=== PATIENT | male | born 1980 | race Caucasian/White ===

== ENCOUNTER 2017-02-17 08:30 | Emergency (ER) | payer MEDICAID ==
[~2017-02-17] VITALS: Ht 157.5 cm; Wt 68.0 kg
[2017-02-17] MEDS ORDERED: IPRATROPIUM/ALBUTEROL 0.5-3(2.5)MG/3ML NEB HHN ONE (10:30)
[2017-02-17 12:43] VITALS: BP 101/64
== END 2017-02-17 12:49 | disposition home or self-care (01) ==
LOC: ER 09:22
DX: J45.909 Unspecified asthma, uncomplicated (principal); F41.9 Anxiety disorder, unspecified
CPT/HCPCS: 93005; 94640; 99283; J7620; Z7610

== ENCOUNTER 2017-03-25 12:48 | Emergency (ER) | payer MEDICAID ==
[~2017-03-25] VITALS: Ht 160 cm; Wt 63.0 kg
[2017-03-25] MEDS ORDERED: ALBUTEROL (13:21)
[2017-03-25] MEDS ORDERED: FAMOTIDINE 20MG/2ML VIAL IV ONE (16:30)
[2017-03-25] MEDS ORDERED: MAGNESIUM/ALUMINUM HYDROXIDE/SIMETHICONE 30ML UDC PO ONE (16:30)
[2017-03-25] MEDS ORDERED: LORAZEPAM 2MG/ML CPJ IV ONE (16:30)
[2017-03-25 19:14] LABS: CLARITY URINE CLEAR (CLEAR); COLOR URINE YELLOW (YELLOW); KETONES URINE 4+ (NEGATIVE); LEUKOCYTE ESTERASE URINE NEGATIVE (NEGATIVE); NITRITE URINE NEGATIVE (NEGATIVE); OCCULT BLOOD URINE NEGATIVE (NEGATIVE); PROTEIN URINE NEGATIVE (NEGATIVE); SPECIFIC GRAVITY URINE 1.024 (1.005-1.030); UROBILINOGEN URINE 0.2 E.U./dL (0.2-1.0)
[2017-03-25] MEDS ORDERED: SODIUM CHLORIDE 0.9% 1,000 ML IV ONE (19:15)
[2017-03-25 19:24] LABS: *AMPHETAMINES SCREEN URINE PRESUMTIVE POSITIVE (NEGATIVE); *BARBITURATES SCREEN URINE NEGATIVE (NEGATIVE); *BENZODIAZEPINES SCREEN URINE NEGATIVE (NEGATIVE); *COCAINE SCREEN URINE NEGATIVE (NEGATIVE); CANNABINOID URINE SCREEN NEGATIVE (NEGATIVE); METHADONE URINE SCREEN NEGATIVE (NEGATIVE); OPIATES URINE SCREEN NEGATIVE (NEGATIVE); PHENCYCLIDINE URINE SCREEN NEGATIVE (NEGATIVE)
[2017-03-25 20:20] VITALS: BP 107/68
== END 2017-03-25 20:48 | disposition home or self-care (01) ==
LOC: ER 12:48
DX: F41.9 Anxiety disorder, unspecified (principal); F15.10 Other stimulant abuse, uncomplicated; F12.10 Cannabis abuse, uncomplicated; J45.909 Unspecified asthma, uncomplicated; F17.200 Nicotine dependence, unspecified, uncomplicated; Z90.49 Acquired absence of other specified parts of digestive tract
CPT/HCPCS: 80305; 81003; 93005; 96361; 96374; 96375; 99285; J2060; J3490; J7030; Z7610

== ENCOUNTER 2024-02-22 09:17 | Emergency (ER) | payer MEDICAID ==
[~2024-02-22] VITALS: Ht 162.6 cm; Wt 64.0 kg
[~2024-02-22 09:17] MED LIST: ALBUTEROL
[2024-02-22 09:21] VITALS: O2SAT 97
[2024-02-22 09:23] VITALS: BP 125/82; TEMP 97.8
[2024-02-22] MEDS: PREDNISONE 20MG TABLET PO STA (09:42)
[2024-02-22 09:48] VITALS: PULSE 97; RESP 20; O2SAT 97
[2024-02-22] MEDS: ALBUTEROL (0.083%) 2.5MG/3ML NEB HHN STA (09:48)
[2024-02-22] MEDS: IPRATROPIUM BROMIDE (0.02%) 0.5MG/2.5ML NEB HHN STA (09:48)
[2024-02-22] MEDS ORDERED: P20 MT (10:33)
[2024-02-22] MEDS ORDERED: ALBU90AE INH (10:33)
== END 2024-02-22 10:41 | disposition home or self-care (01) ==
LOC: ER 09:17
DX: J45.901 Unspecified asthma with (acute) exacerbation (principal); F41.9 Anxiety disorder, unspecified; F12.90 Cannabis use, unspecified, uncomplicated; F17.210 Nicotine dependence, cigarettes, uncomplicated; Z90.49 Acquired absence of other specified parts of digestive tract
CPT/HCPCS: 71045; 94640; 94070; 98960; 99283; 99406; J7512; Z7610 ×3

== ENCOUNTER 2024-05-22 03:42 | Emergency (ER) | payer MEDICAID ==
[~2024-05-22] VITALS: Ht 160 cm; Wt 68.0 kg
[~2024-05-22 03:42] MED LIST changes: +ALBU90AE INH; +P20 MT
[2024-05-22 03:47] VITALS: BP 113/79; TEMP 36.7
[2024-05-22 03:48] VITALS: O2SAT 98
[2024-05-22] MEDS: PREDNISONE 20MG TABLET PO STA (04:24)
[2024-05-22] MEDS: HYDROXYZINE 25MG TABLET PO ONE (04:24)
[2024-05-22] MEDS: ALBUTEROL (0.083%) 2.5MG/3ML NEB HHN STA (04:41)
[2024-05-22] MEDS: IPRATROPIUM BROMIDE (0.02%) 0.5MG/2.5ML NEB HHN STA (04:42)
[2024-05-22 04:46] VITALS: PULSE 93; RESP 20; O2SAT 94
[2024-05-22] MEDS ORDERED: P20 MT (05:16)
[2024-05-22] MEDS ORDERED: HYDR-459 MT (05:16)
[2024-05-22] MEDS ORDERED: ALBU18HF2 IH (05:16)
[2024-05-22] MEDS ORDERED: ALBU2.5V13 NEB (05:25)
== END 2024-05-22 05:52 | disposition home or self-care (01) ==
LOC: ER 03:42
DX: J45.901 Unspecified asthma with (acute) exacerbation (principal); F12.10 Cannabis abuse, uncomplicated; F41.9 Anxiety disorder, unspecified; Z79.899 Other long term (current) drug therapy; Z90.49 Acquired absence of other specified parts of digestive tract
CPT/HCPCS: 71045; 94644; 99285; J7512; Z7610; 94640

== ENCOUNTER 2024-06-22 06:05 | Emergency (ER) | payer MEDICAID ==
[~2024-06-22] VITALS: Ht 157.5 cm; Wt 66.2 kg
[~2024-06-22 06:05] MED LIST changes: +ALBU18HF2 IH; +ALBU2.5V13 NEB; +HYDR-459 MT
[2024-06-22 06:13] VITALS: TEMP 36.9
[2024-06-22] MEDS ORDERED: P20 MT (06:50)
[2024-06-22] MEDS ORDERED: ALBU4TAB6 MT (06:50)
[2024-06-22] MEDS ORDERED: KETOROLAC 30MG/ML VIAL IM ONE (07:00)
[2024-06-22 08:22] VITALS: PULSE 80; RESP 15; O2SAT 97
[2024-06-22] MEDS: IPRATROPIUM/ALBUTEROL 0.5-3(2.5)MG/3ML NEB HHN ONE (08:22)
[2024-06-22 08:52] VITALS: BP 111/77; PULSE 86; RESP 16; O2SAT 100
== END 2024-06-22 08:51 | disposition home or self-care (01) ==
LOC: ER 06:17
DX: J45.901 Unspecified asthma with (acute) exacerbation (principal); F41.9 Anxiety disorder, unspecified; F12.90 Cannabis use, unspecified, uncomplicated; Z90.49 Acquired absence of other specified parts of digestive tract
CPT/HCPCS: 71045; 94640; 99283; Z7610 ×3; 94070; 94664

== ENCOUNTER 2024-08-19 00:42 | Emergency (ER) | payer MEDICAID ==
[~2024-08-19] VITALS: Ht 157.5 cm; Wt 61.0 kg
[~2024-08-19 00:42] MED LIST changes: +ALBU4TAB6 MT
[2024-08-19] MEDS: ALBUTEROL (0.5%) 2.5MG/0.5ML NEB HHN ONE (01:41)
[2024-08-19 01:42] VITALS: PULSE 86; RESP 20; O2SAT 96
[2024-08-19] MEDS: PREDNISONE 20MG TABLET PO ONE (01:42)
[2024-08-19] MEDS: ACETAMINOPHEN 325MG TABLET PO ONE (01:42)
[2024-08-19] MEDS: IPRATROPIUM/ALBUTEROL 0.5-3(2.5)MG/3ML NEB HHN ONE (02:46)
[2024-08-19 03:38] VITALS: BP 117/79; PULSE 74; RESP 18; TEMP 36.6; O2SAT 100
[2024-08-19] MEDS ORDERED: ALBU90AE INH (03:54)
[2024-08-19] MEDS ORDERED: P20 MT (03:54)
[2024-08-19] MEDS ORDERED: ALBU05 NEB (03:54)
== END 2024-08-19 04:04 | disposition home or self-care (01) ==
LOC: ER 00:42
DX: J45.901 Unspecified asthma with (acute) exacerbation (principal); F41.9 Anxiety disorder, unspecified; F12.90 Cannabis use, unspecified, uncomplicated; Z79.52 Long term (current) use of systemic steroids; Z79.899 Other long term (current) drug therapy
CPT/HCPCS: 94640; 98960; 99283; J7512; Z7610 ×4; 94070; 94664